=== PATIENT | male | born 2000 | race Caucasian/White ===

== ENCOUNTER 2020-05-24 20:03 | Emergency (ER) | payer OTHER | END 2020-05-24 22:25 | disposition home or self-care (01) | LOC: ER1 20:03 | DX: S06.0X9A Concussion with loss of consciousness of unspecified duration, initial encounter (principal); S09.93XA Unspecified injury of face, initial encounter; S00.33XA Contusion of nose, initial encounter; S00.512A Abrasion of oral cavity, initial encounter; F17.290 Nicotine dependence, other tobacco product, uncomplicated; Z87.81 Personal history of (healed) traumatic fracture; W19.XXXA Unspecified fall, initial encounter; Y93.02 Activity, running; Y92.009 Unspecified place in unspecified non-institutional (private) residence as the place of occurrence of the external cause; Z87.828 Personal history of other (healed) physical injury and trauma | CPT/HCPCS: 70160; 70450; 99284 ==